=== PATIENT | male | born 1975 | race Caucasian/White ===

== ENCOUNTER → 2020-02-19 | Outpatient (CLI) | payer OTHER ==
[~2020-02-19] MED LIST: ATOR20TA37 PO; CHOL200074 PO; CYAN-27 PO; IBUP-1223 PO; MAGN400T9 PO; OMEP-110 PO; POTA99TA2 PO; TEST75GE TP; humira IV
[2020-02-19 13:08] LABS: BASOPHILS % (AUTO) 1 % (0-1); EOSINOPHILS % (AUTO) 5 % (1-7); LYMPHOCYTES % (AUTO) 36 % (22-44); MEAN CORPUSCULAR HEMOGLOBIN 33.8 pg (27.5-34.5); MEAN CORPUSCULAR HGB CONC 34.5 g/dL (33.2-36.2); MEAN PLATELET VOLUME 7.8 fL (7.4-10.4); MONOCYTES % (AUTO) 9 % (2-9); NEUTROPHILS % (AUTO) 51 % (42-75); PLATELET COUNT 134 x10^3/uL (130-400); RED BLOOD COUNT 4.65 x10^6/uL (4.38-5.82); RED CELL DISTRIBUTION WIDTH 12.2 % (9.4-14.8)
[2020-02-19 13:16] LABS: MD NO
[2020-02-19 13:17] LABS: ANION GAP 8 mmol/L (5-15); CALCIUM 9.3 mg/dL (8.5-10.1); CHLORIDE 104 mmol/L (98-107); CREATININE 1.23 mg/dL (0.7-1.3)
[2020-02-19 13:18] LABS: INTERNATIONAL NORMALIZED RATIO 1.06 (0.93-1.1); PROTHROMBIN TIME 10.9 Seconds (9.6-11.5)
[2020-02-19 14:29] LABS: MICROSCOPIC NOT IND
== END | disposition home or self-care (01) ==
LOC: STAR 12:07
PROVIDERS: ATTEND Neurological Surgery
DX: Z01.810 Encounter for preprocedural cardiovascular examination (principal); Z01.811 Encounter for preprocedural respiratory examination; Z01.812 Encounter for preprocedural laboratory examination; R79.1 Abnormal coagulation profile; M51.36 Other intervertebral disc degeneration, lumbar region; R82.90 Unspecified abnormal findings in urine; R94.31 Abnormal electrocardiogram [ECG] [EKG]; I25.2 Old myocardial infarction
CPT/HCPCS: 36415; 71046; 80048; 81003; 85025; 85610; 85730; 93005

== ENCOUNTER → 2020-02-27 | Outpatient (CLI) | payer OTHER ==
[~2020-02-27] MED LIST changes: +REGADENOSON 0.4 MG/5 ML SYRINGE ONE
== END | disposition home or self-care (01) ==
LOC: CVU 06:52
PROVIDERS: ATTEND Internal Medicine Cardiovascular Disease
DX: Z01.810 Encounter for preprocedural cardiovascular examination (principal); I08.0 Rheumatic disorders of both mitral and aortic valves; I10 Essential (primary) hypertension
CPT/HCPCS: 78452; 93017; 93306; 93356; A9502; J2785

== ENCOUNTER → 2020-02-28 | Outpatient (CLI) | payer OTHER ==
[~2020-02-28] MED LIST changes: -REGADENOSON 0.4 MG/5 ML SYRINGE ONE
== END | disposition home or self-care (01) ==
LOC: STAR 10:01
PROVIDERS: ATTEND Neurological Surgery
DX: Z01.812 Encounter for preprocedural laboratory examination (principal); Z20.828 Contact with and (suspected) exposure to other viral communicable diseases
CPT/HCPCS: 36415; 87635

== ENCOUNTER 2020-03-03 05:31 | Inpatient (IN) | payer OTHER ==
[~2020-03-03] VITALS: Ht 185.4 cm; Wt 117.0 kg
[2020-03-03] MEDS ORDERED: CHLORHEXIDINE 15 ML UDC MM STA (06:02)
[2020-03-03] MEDS ORDERED: BUPIVACAINE/PF 0.5% ONE (06:14)
[2020-03-03] MEDS ORDERED: EPINEPHRINE 1 MG/ML, 1ML ONE (06:14)
[2020-03-03] MEDS ORDERED: BACITRACIN 50,000 UNIT ONE (06:14)
[2020-03-03] MEDS ORDERED: CHLORHEXIDINE 15 ML UDC ONE (06:16)
[2020-03-03] MEDS ORDERED: LACTATED RINGERS 1,000 ML IV SCH (06:30)
[2020-03-03] MEDS ORDERED: MIDAZOLAM 1 MG/ML, 2ML ONE (06:44)
[2020-03-03] MEDS ORDERED: FENTANYL PF 250 MCG/5ML ONE (06:45)
[2020-03-03] MEDS ORDERED: KETAMINE 10 MG/ML, 20ML ONE (06:55)
[2020-03-03] MEDS ORDERED: GLYCOPYRROLATE 0.2MG/1ML, 5ML ONE (06:59)
[2020-03-03] MEDS ORDERED: ROCURONIUM 10 MG/ML,10ML ONE (06:59)
[2020-03-03] MEDS ORDERED: ONDANSETRON 2MG/ML, 2ML ONE (06:59)
[2020-03-03] MEDS ORDERED: NEOSTIGMINE 1 MG/ML, 10ML ONE (06:59)
[2020-03-03] MEDS ORDERED: DEXAMETHASONE 4 MG/ML, 1ML ONE (06:59)
[2020-03-03] MEDS ORDERED: PROPOFOL 10 MG/ML, 20ML ONE (06:59)
[2020-03-03] MEDS ORDERED: LIDOCAINE PF 2%, 5ML ONE (06:59)
[2020-03-03] MEDS ORDERED: MEPERIDINE/PF 25MG/0.5ML IVPush PRN (07:30)
[2020-03-03] MEDS ORDERED: ONDANSETRON 2MG/ML, 2ML IVPush PRN (07:30)
[2020-03-03] MEDS ORDERED: ACETAMINOPHEN 325 MG TABLET PO PRN (07:30)
[2020-03-03] MEDS ORDERED: DIPHENHYDRAMINE 50 MG/ML, 1ML IVPush PRN ×2 (07:30→11:00)
[2020-03-03] MEDS ORDERED: LABETALOL 5MG/ML, 20ML IV PRN ×2 (07:30→11:00)
[2020-03-03] MEDS ORDERED: OXYcodone 5 MG/5 ML ORAL.SOL UDC PO PRN (07:30)
[2020-03-03] MEDS ORDERED: hydrALAzine 20 MG/ML, 1ML IV PRN (07:30)
[2020-03-03] MEDS ORDERED: DIAZEPAM 5 MG/ML, 2ML IVPush PRN (07:30)
[2020-03-03] MEDS ORDERED: FLU VACCINE PER PHARMACY IM ONE (07:30)
[2020-03-03] MEDS ORDERED: PROMETHAZINE 25 MG/ML, 1ML IVPush PRN (07:30)
[2020-03-03] MEDS ORDERED: FENTANYL PF 100 MCG/2ML ONE (08:32)
[2020-03-03] MEDS ORDERED: HYDROmorphone 1 MG/ML, 1ML INJ ONE ×2 (08:33→09:31)
[2020-03-03] MEDS ORDERED: OXYcodone 5 MG/5 ML ORAL.SOL UDC ONE (08:33)
[2020-03-03] MEDS: FENTANYL PF 100 MCG/2ML IV PRN ×2 (09:01→09:10)
[2020-03-03] MEDS: HYDROmorphone 1 MG/ML, 1ML INJ IVPush PRN ×3 (09:06→09:35)
[2020-03-03] MEDS ORDERED: METHOCARBAMOL 1,000 MG in DEXTROSE 5% 100 ML IV ONE (09:30)
[2020-03-03 10:35] VITALS: BP 111/75
[2020-03-03] MEDS ORDERED: PHARMACY MAY ADJ FOR RENAL FX MC PRN (11:00)
[2020-03-03] MEDS ORDERED: PROMETHAZINE 25 MG/ML, 1ML IM PRN (11:00)
[2020-03-03] MEDS ORDERED: D5%-0.9% NACL+KCL 20MEQ 1,000 ML IV SCH ×3 (11:00→16:00)
[2020-03-03] MEDS ORDERED: BISACODYL 10 MG SUPP PR PRN (11:00)
[2020-03-03] MEDS ORDERED: HYDROcodone/APAP 5/325 TABLET PO PRN ×2 (11:00→13:00)
[2020-03-03] MEDS ORDERED: ONDANSETRON 2MG/ML, 2ML IV PRN ×2 (11:00→13:00)
[2020-03-03] MEDS ORDERED: DIPHENHYDRAMINE 50 MG/ML, 1ML IM PRN (11:00)
[2020-03-03] MEDS ORDERED: MAGNESIUM HYDROXIDE 8%, 30ML UDC PO PRN (11:00)
[2020-03-03] MEDS ORDERED: DIPHENHYDRAMINE 25 MG CAPSULE PO PRN (11:00)
[2020-03-03] MEDS ORDERED: morphine SULFATE 10 MG/ML, 1ML IV PRN (11:00)
[2020-03-03 12:28] VITALS: BP 129/89
[2020-03-03] MEDS: OXYcodone IR 5MG TABLET PO PRN ×4 (12:29→23:15)
[2020-03-03] MEDS ORDERED: OXYcodone IR 5MG TABLET PO PRN (12:30)
[2020-03-03] MEDS ORDERED: VANCOMYCIN PER PHARMACY MC PRN (13:00)
[2020-03-03] MEDS: D5%-0.9% NACL+KCL 20MEQ 1,000 ML IV SCH ×2 (13:00→23:16)
[2020-03-03] MEDS ORDERED: FLU VACC QS2020-21(6MOS UP)/PF 60MCG/0.5 ML SYR IM ONE (13:30)
[2020-03-03] MEDS: CEFAZOLIN PMX 1GM/50ML 50 ML IVPB SCH ×2 (15:46→23:06)
[2020-03-03] MEDS ORDERED: GABAPENTIN 300 MG CAPSULE PO SCH (16:00)
[2020-03-03] MEDS: METHOCARBAMOL 750 MG in DEXTROSE 5% 100 ML IV SCH (18:37)
[2020-03-03 19:07] VITALS: BP 136/88
[2020-03-03] MEDS ORDERED: ATORVASTATIN 20 MG TABLET PO SCH (21:00)
[2020-03-03] MEDS ORDERED: SODIUM CHLORIDE FLUSH 10ML SYR IVF SCH (21:00)
[2020-03-04 01:33] VITALS: BP 117/77
[2020-03-04] MEDS: METHOCARBAMOL 750 MG in DEXTROSE 5% 100 ML IV SCH (01:44)
[2020-03-04 05:00] LABS: BASOPHILS % (AUTO) 0 % (0-1); EOSINOPHILS % (AUTO) 0 % (1-7); LYMPHOCYTES % (AUTO) 15 % (22-44); MEAN CORPUSCULAR HEMOGLOBIN 33.6 pg (27.5-34.5); MEAN CORPUSCULAR HGB CONC 34.7 g/dL (33.2-36.2); MEAN PLATELET VOLUME 8.3 fL (7.4-10.4); MONOCYTES % (AUTO) 9 % (2-9); NEUTROPHILS % (AUTO) 76 % (42-75); PLATELET COUNT 139 x10^3/uL (130-400); RED BLOOD COUNT 4.35 x10^6/uL (4.38-5.82); RED CELL DISTRIBUTION WIDTH 12.5 % (9.4-14.8)
[2020-03-04 05:08] LABS: ANION GAP 6 mmol/L (5-15); CHLORIDE 104 mmol/L (98-107)
[2020-03-04 05:09] LABS: CREATININE 1.15 mg/dL (0.7-1.3)
[2020-03-04 05:10] LABS: MD NO
[2020-03-04] MEDS ORDERED: OMEPRAZOLE 20 MG CAPSULE.DR PO SCH (06:00)
[2020-03-04] MEDS ORDERED: VANCOMYCIN 1,000 MG ONE (06:21)
[2020-03-04] MEDS ORDERED: BUPIVACAINE/PF 0.5% ONE (06:21)
[2020-03-04] MEDS ORDERED: EPINEPHRINE 1 MG/ML, 1ML ONE (06:21)
[2020-03-04] MEDS ORDERED: BACITRACIN 50,000 UNIT ONE (06:22)
[2020-03-04] MEDS ORDERED: CHLORHEXIDINE 15 ML UDC ONE (06:29)
[2020-03-04] MEDS ORDERED: CHLORHEXIDINE 15 ML UDC MM ONE (06:30)
[2020-03-04] MEDS ORDERED: FENTANYL PF 250 MCG/5ML ONE (06:38)
[2020-03-04] MEDS ORDERED: BACITRACIN 50,000 UNIT IRRIG ONE (07:32)
[2020-03-04] MEDS ORDERED: NEOSTIGMINE 1 MG/ML, 10ML ONE (07:34)
[2020-03-04] MEDS ORDERED: DEXAMETHASONE 4 MG/ML, 1ML ONE (07:34)
[2020-03-04] MEDS ORDERED: BUPIVACAINE/PF 0.5% INFIL ONE (07:34)
[2020-03-04] MEDS ORDERED: SUCCINYLCHOLINE 20 MG/ML, 10ML ONE (07:34)
[2020-03-04] MEDS ORDERED: CEFAZOLIN 1,000 MG ONE (07:34)
[2020-03-04] MEDS ORDERED: GLYCOPYRROLATE 0.2MG/1ML, 5ML ONE (07:34)
[2020-03-04] MEDS ORDERED: PROPOFOL 10 MG/ML, 20ML ONE (07:34)
[2020-03-04] MEDS ORDERED: ROCURONIUM 10MG/ML,5ML ONE (07:34)
[2020-03-04] MEDS ORDERED: ONDANSETRON 2MG/ML, 2ML ONE (07:34)
[2020-03-04] MEDS ORDERED: VANCOMYCIN 1,000 MG IM ONE (07:34)
[2020-03-04] MEDS ORDERED: FENTANYL PF 100 MCG/2ML ONE ×3 (08:18→08:57)
[2020-03-04] MEDS ORDERED: OXYcodone 5 MG/5 ML ORAL.SOL UDC ONE (08:57)
[2020-03-04] MEDS: FENTANYL PF 100 MCG/2ML IV PRN ×2 (08:58→09:14)
[2020-03-04] MEDS ORDERED: ONDANSETRON 2MG/ML, 2ML IVPush PRN ×2 (09:00→09:30)
[2020-03-04] MEDS ORDERED: PROMETHAZINE 25 MG/ML, 1ML IVPush PRN (09:00)
[2020-03-04] MEDS ORDERED: ACETAMINOPHEN 325 MG TABLET PO PRN ×2 (09:00→09:30)
[2020-03-04] MEDS ORDERED: MAGNESIUM HYDROXIDE 8%, 30ML UDC PO PRN (09:00)
[2020-03-04] MEDS ORDERED: TEMPLATE NON-FORMULARY MED. (Potassium Gluconate** 99 MG) PO SCH (09:00)
[2020-03-04] MEDS ORDERED: METHOCARBAMOL 1,000 MG in DEXTROSE 5% 100 ML IV PRN (09:00)
[2020-03-04] MEDS ORDERED: OXYcodone 5 MG/5 ML ORAL.SOL UDC PO PRN (09:00)
[2020-03-04] MEDS ORDERED: SENNA/DOCUSATE TABLET PO SCH ×2 (09:00)
[2020-03-04] MEDS ORDERED: LORazepam 2 MG/ML, 1ML IVPush PRN (09:00)
[2020-03-04] MEDS ORDERED: PROMETHAZINE 25 MG SUPP PR PRN (09:00)
[2020-03-04] MEDS ORDERED: MAGNESIUM OXIDE 400 MG TABLET PO SCH (09:00)
[2020-03-04] MEDS ORDERED: BISACODYL 10 MG SUPP PR PRN (09:00)
[2020-03-04] MEDS ORDERED: SENNA/DOCUSATE TABLET PO PRN (09:00)
[2020-03-04] MEDS ORDERED: HYDROmorphone 1 MG/ML, 1ML INJ IVPush PRN ×2 (09:00)
[2020-03-04] MEDS ORDERED: HYDROcodone/APAP 10/325 MG TABLET PO PRN (09:30)
[2020-03-04] MEDS ORDERED: HYDROcodone/APAP 5/325 TABLET PO PRN (09:30)
[2020-03-04] MEDS ORDERED: DIPHENHYDRAMINE 50 MG/ML, 1ML IVPush PRN (09:30)
[2020-03-04] MEDS ORDERED: PHARMACY MAY ADJ FOR RENAL FX MC PRN (09:30)
[2020-03-04] MEDS ORDERED: PROMETHAZINE 25 MG/ML, 1ML IM PRN (09:30)
[2020-03-04] MEDS ORDERED: METHOCARBAMOL 1,000 MG in DEXTROSE 5% 100 ML IV ONE (10:00)
[2020-03-04] MEDS: LISINOPRIL 10 MG TABLET PO SCH (10:31)
[2020-03-04] MEDS: CYANOCOBALAMIN 1,000 MCG TABLET PO SCH (10:31)
[2020-03-04] MEDS: MAGNESIUM OXIDE 400 MG TABLET PO SCH (10:31)
[2020-03-04] MEDS: CHOLECALCIFEROL 1,000 UNIT TABLET PO SCH (10:31)
[2020-03-04] MEDS: SODIUM CHLORIDE FLUSH 10ML SYR IVF SCH ×2 (10:32→21:11)
[2020-03-04] MEDS: OMEPRAZOLE 20 MG CAPSULE.DR PO SCH (10:32)
[2020-03-04] MEDS: TESTOSTERONE TP SCH (10:33)
[2020-03-04] MEDS: [UNRECOGNIZED DRUG - OTHER] TP SCH (10:33)
[2020-03-04] MEDS: POTASSIUM MC SCH ×3 (10:57→23:45)
[2020-03-04] MEDS: OXYcodone IR 5MG TABLET PO PRN ×4 (11:51→21:10)
[2020-03-04 12:46] VITALS: BP 126/90
[2020-03-04] MEDS: CEFAZOLIN PMX 1GM/50ML 50 ML IVPB SCH (17:12)
[2020-03-04] MEDS: D5%-0.9% NACL+KCL 20MEQ 1,000 ML IV SCH (19:00)
[2020-03-04] MEDS ORDERED: ATORVASTATIN 20 MG TABLET PO SCH (21:00)
[2020-03-04] MEDS: METHOCARBAMOL 750 MG TABLET PO PRN (21:10)
[2020-03-04 21:19] VITALS: BP 117/81
[2020-03-05] MEDS: OXYcodone IR 5MG TABLET PO PRN ×4 (00:37→10:36)
[2020-03-05] MEDS: CEFAZOLIN PMX 1GM/50ML 50 ML IVPB SCH (00:38)
[2020-03-05 00:42] VITALS: BP 119/84
[2020-03-05] MEDS: D5%-0.9% NACL+KCL 20MEQ 1,000 ML IV SCH (03:59)
[2020-03-05 04:02] VITALS: BP 124/88
[2020-03-05 05:24] LABS: BASOPHILS % (AUTO) 0 % (0-1); EOSINOPHILS % (AUTO) 1 % (1-7); LYMPHOCYTES % (AUTO) 20 % (22-44); MEAN CORPUSCULAR HEMOGLOBIN 33.5 pg (27.5-34.5); MEAN CORPUSCULAR HGB CONC 34.3 g/dL (33.2-36.2); MEAN PLATELET VOLUME 8.2 fL (7.4-10.4); MONOCYTES % (AUTO) 10 % (2-9); NEUTROPHILS % (AUTO) 69 % (42-75); PLATELET COUNT 100 x10^3/uL (130-400); RED BLOOD COUNT 3.96 x10^6/uL (4.38-5.82); RED CELL DISTRIBUTION WIDTH 12.1 % (9.4-14.8)
[2020-03-05 05:27] LABS: ANION GAP 4 mmol/L (5-15); CALCIUM 8.9 mg/dL (8.5-10.1); CHLORIDE 101 mmol/L (98-107); CREATININE 1.22 mg/dL (0.7-1.3)
[2020-03-05 05:47] LABS: MD NO
[2020-03-05] MEDS ORDERED: ENOXAPARIN 40 MG/0.4 ML SQ SCH (06:00)
[2020-03-05] MEDS: METHOCARBAMOL 750 MG TABLET PO PRN (06:10)
[2020-03-05] MEDS: OMEPRAZOLE 20 MG CAPSULE.DR PO SCH (06:10)
[2020-03-05 07:14] VITALS: BP 124/83
[2020-03-05] MEDS: MAGNESIUM OXIDE 400 MG TABLET PO SCH (08:45)
[2020-03-05] MEDS: CYANOCOBALAMIN 1,000 MCG TABLET PO SCH (08:45)
[2020-03-05] MEDS: LISINOPRIL 10 MG TABLET PO SCH (08:45)
[2020-03-05] MEDS: CHOLECALCIFEROL 1,000 UNIT TABLET PO SCH (08:46)
[2020-03-05] MEDS: SODIUM CHLORIDE FLUSH 10ML SYR IVF SCH (08:46)
[2020-03-05] MEDS: [UNRECOGNIZED DRUG - OTHER] TP SCH (08:47)
[2020-03-05] MEDS: TESTOSTERONE TP SCH (08:47)
[2020-03-05] MEDS ORDERED: OXYC-302 PO (08:51)
[2020-03-05] MEDS ORDERED: METH750T87 PO (08:53)
[2020-03-05] MEDS: POTASSIUM MC SCH (10:00)
[2020-03-05] MEDS ORDERED: METHOCARBAMOL 750 MG TABLET PO SCH (18:00)
== END 2020-03-05 13:20 | disposition home or self-care (01) | DRG 455 ==
LOC: ORIP 05:31 → 3WST 10:34 → DCLOUNGE 03-05 13:12
PROVIDERS: ADMIT Neurological Surgery; ATTEND Neurological Surgery
PROC: 0SG30K0 Fusion of Lumbosacral Joint with Nonautologous Tissue Substitute, Anterior Approach, Anterior Column, Open Approach (ICD-10-PCS; 2020-03-03)
PROC: 0SG30A0 Fusion of Lumbosacral Joint with Interbody Fusion Device, Anterior Approach, Anterior Column, Open Approach (ICD-10-PCS; principal; 2020-03-03 07:00)
PROC: 0SG3371 Fusion of Lumbosacral Joint with Autologous Tissue Substitute, Posterior Approach, Posterior Column, Percutaneous Approach (ICD-10-PCS; 2020-03-04)
PROC: 01NB3ZZ Release Lumbar Nerve, Percutaneous Approach (ICD-10-PCS; 2020-03-04)
PROC: 01NR3ZZ Release Sacral Nerve, Percutaneous Approach (ICD-10-PCS; 2020-03-04)
PROC: 0SG33AJ Fusion of Lumbosacral Joint with Interbody Fusion Device, Posterior Approach, Anterior Column, Percutaneous Approach (ICD-10-PCS; 2020-03-04)
PROC: 8E0W3CZ Robotic Assisted Procedure of Trunk Region, Percutaneous Approach (ICD-10-PCS; 2020-03-04)
DX: M51.37 Other intervertebral disc degeneration, lumbosacral region (principal); M47.27 Other spondylosis with radiculopathy, lumbosacral region; M48.061 Spinal stenosis, lumbar region without neurogenic claudication; Z72.89 Other problems related to lifestyle
CPT/HCPCS: 36415; 72100; 74018; S0020; 72131; 80048; 85025; 90686; C1713; C1776; G0378; J0171; J0690; J1100; J1170; J1650; J2250; J2405; J2704; J2710; J3010; J3370; C1763; J0330; J1200; J2800; J3480; J7120